=== PATIENT | female | born 1990 | race Caucasian/White ===

== ENCOUNTER 2020-09-05 20:34 | Observation (INO) | payer SELFPAY ==
[2020-09-05] MEDS ORDERED: Lactated Ringers 1,000 ML IV ONE (21:00)
[2020-09-05] MEDS ORDERED: Nalbuphine 10 MG/ML Syringe IVPUSH PRN (21:05)
[2020-09-05] MEDS ORDERED: Ampicillin 2 GM in Sodium Chloride 0.9% 100 ML IV ONE (21:30)
[2020-09-05] MEDS: traMADol 50 MG Tab PO PRN (21:39)
[2020-09-05] MEDS: Dextrose 5%-Lactated Ringers 1,000 ML IV SCH (22:05)
[2020-09-05] MEDS: Gentamicin 400 MG in Sodium Chloride 0.9% 100 ML IV SCH (22:06)
[2020-09-05] MEDS: Ondansetron 4 MG/2 ML SDV IVPUSH PRN (22:16)
--- NOTE | 2020-09-05 22:32 | PCM.LDHP ---
L&D History of Present Illness - General Date of Service: 09/05/20 Admit Problem/Dx: Patient Status Order with Admit Dx/Problem 09/05/20 20:43 Patient Status [ADT] Routine Admission Diagnosis/Problem Admission Diagnosis/Problem 09/05/20 22:22 Right pyelonephritis Source of Information: Patient History Limitations: Reports: No Limitations - History of Present Illness Introduction:: Azra is a 29-year-old 4 para 3-0-0-3 female who is admitted to observation status for suspected right pyelonephritis. Patient has a 3-day history of right-sided abdominal pain which is now extended to the right flank and right CVA. She was evaluated on 09/02/2020 in outpatient L&D for this right lower quadrant pain it was felt to be musculoskeletal at that time. At that time she reports urine analysis was normal. She is treated with pain medications, evaluated and found to have heart rate that was somewhat dysrhythmic with periods of what appeared to be bradycardia. She was however discharged home. Patient was seen in clinic 09/04/2020 with continued right lower quadrant pain, history of fever up to 100.8 on 09/03/2020. She however denied any urinary tract infection symptoms. Evaluation consisted of a white blood count which was mildly elevated at 11+ thousand. And a C-reactive protein which is elevated at 34. Late on 09/04/2020 urinalysis returned showing evidence of urinary tract infection. She was started on Macrobid 1 p.o. twice daily. White count decreased to 8 on the a.m. of 09/05/2020. Patient however has had somewhat worsening of her condition that she has had some nausea. Pain is 8/10 upon initial evaluation in the outpatient L&D this evening. Reports good movement. She has had some contractions. 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 CHELSI is 10/13/2020 as based upon a certain last menstrual period started 01/07/2020 and supported by an ultr asound done at 20-1/7 weeks. The patient has 3 other children. Their ages 13, 12 and 5 years of age. They are male, female and female respectively. All were born via and were in the 7 pound rate weight range. Menarche at age 9. Cycles q. 28 to 30 days. Not using any control at the time of conception. LMP was certain at 01/07/2020. hCG was positive on 02/27/2020. course: Patient was seen early in the at approximately 12-3/7 weeks gestational age. She has been seen on a regular basis. Her weight has been from 167.4 up to 174 pounds for a 7 pound increase. Patient declined Pap smear, STD testing and pelvic exam early in the . She declined a Tdap and flu vaccination. She declined genetic testing. Her EPDS score on 05/29/2020 was 3/30. She failed her 1 hour GTT with us glucose of 154 but she passed her 3-hour glucose with the following values 84 at fasting, 143 at 1 hour, 135 a 2- hour, 119 at 3-hour. Patient plans to breast-feed. She has had a low hemoglobin throughout the latter part of the . Allergies: Codeine derivatives which cause swelling. (Patient did recently use morphine sulfate IV on her last evaluation and treatment in the outpatient labor delivery on 09/02/2020had no problems with this). Medications: 1. Famotidine 20 mg orally daily as needed 2. vitamins daily 3. Ferrous sulfate 3 and 25 mg 1 tablet twice daily Past medical history: 1. Recurrent bladder infections 2. History of depression 3. Vaginal delivery x3 Past surgical history: Unremarkable Family history: Mother and father are alive and well. No related problems noted in the family. Social history: Patient is . She is a [id number] mom. She is a high school graduate. 's name is Aditi Bailey. She has a history of smoking 1/2 pack cigarettes per day pre but not during . She denies any significant also alcohol or drugs otherwise. Review of systems: Dental patient's main complaint is right lower quadrant pain generalized abdominal pain and right flank pain. She denies any fever. She has had some contractions this evening. No leakage of fluid, no bleeding vaginally. Skin: Negative Lungs: No infectious symptoms or shortness of breath Cardiovascular: No chest pain or exercise intolerance Breasts: Negative GI: Negative : Patient's had burning with urination and increased frequency urination. She feels like she is not completely emptying her bladder. Musculoskeletal: Negative Neurological: Negative Physical exam: In general the patient is well-developed, well-nourished, pleasant female of stated age in moderate distress secondary to abdominal pain as described above.. Skin is warm dry without lesions. HEENT, neck and back within normal limits. Lungs are clear with good breath sounds in all lung corado. Cardiovascular exam shows regular and rhythm without murmurs. Abdomen is gravid with fundal height on 09/04/2020 at 34.5 cm. Baby in vertex presentation. Genital per bimanual shows normal external genitalia, BUS, pubic hair pattern. There is normal support, secretions and estrogenization vagina. Cervix is open 1 to 2 cm at the external loss but closed at the internal loss and is soft. Presenting part is -3 or above. Feels like presenting part is cephalic. No bleeding noted. No loss of vaginal fluid noted. Extremities and neurological exam are grossly within normal limits. 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: Reports: Social & Family History - Family History Neurological: Reports: CVA Oncologic: Reports: None H&P Review of Systems - Review of Systems: Review Of Systems: See Below L&D Exam - Exam Exam: See Below - Vital Signs Weight: 78.834 kg - Patient Data Lab Results Last 24 hrs: Laboratory Results - last 24 hr 09/05/20 09/05/20 Range/Units 21:26 21:26 WBC 8.02 (3.98-10.04) K/mm3 RBC 3.45 L (3.98-5.22) M/mm3 Hgb 10.0 L (11.2-15.7) gm/dl Hct 31.7 L (34.1-44.9) % MCV 91.9 (79.4-94.8) fl MCH 29.0 (25.6-32.2) pg MCHC 31.5 L (32.2-35.5) g/dl RDW Std Deviation 48.2 H (36.4-46.3) fL Plt Count 166 L (182-369) K/mm3 MPV 11.3 (9.4-12.3) fl Neut % (Auto) 82.3 H (34.0-71.1) % Lymph % (Auto) 9.4 L (19.3-51.7) % Calhoun % (Auto) 7.0 (4.7-12.5) % Eos % (Auto) 0.6 L (0.7-5.8) Baso % (Auto) 0.1 (0.1-1.2) % Neut # (Auto) 6.60 H (1.56-6.13) K/mm3 Lymph # (Auto) 0.75 L (1.18-3.74) K/mm3 Calhoun # (Auto) 0.56 H (0.24-0.36) K/mm3 Eos # (Auto) 0.05 (0.04-0.36) K/mm3 Baso # (Auto) 0.01 (0.01-0.08) K/mm3 Sodium 137 (136-145) mEq/L Potassium 3.5 (3.5-5.1) mEq/L Chloride 101 (98-107) mEq/L Carbon Dioxide 19 L (21-32) mEq/L Anion Gap 20.5 H (5-15) BUN 3 L (7-18) mg/dL Creatinine 0.5 L (0.55-1.02) mg/dL Est Cr Clr Drug Dosing 161.44 mL/min Estimated GFR (MDRD) > 60 (>60) mL/min BUN/Creatinine Ratio 6.0 L (14-18) Glucose 84 (74-106) mg/dL Calcium 8.5 (8.5-10.1) mg/dL Total Bilirubin 0.5 (0.2-1.0) mg/dL AST 9 L (15-37) U/L ALT 12 L (14-59) U/L Alkaline Phosphatase 110 (46-116) U/L Total Protein 6.3 L (6.4-8.2) g/dl Albumin 2.3 L (3.4-5.0) g/dl Globulin 4.0 gm/dL Albumin/Globulin Ratio 0.6 L (1-2) Result Diagrams: 11/10/20 21:26 09/05/20 21:26 Problem List Initiated/Reviewed/Updated: Yes Orders Last 24hrs: Active Orders 24 hr Category Date Time Status Patient Status [ADT] Routine ADT 09/05/20 20:43 Active Non Stress Test [RC] PER UNIT ROUTINE Care 09/05/20 20:43 Active Vital Signs [RC] PER UNIT ROUTINE Care 09/05/20 20:43 Active CBC WITH AUTO DIFF [HEME] Stat Lab 09/05/20 21:26 Results CORONAVIRUS COVID-19 ELROY [MOLEC] Stat Lab 09/05/20 22:13 Ordered CULTURE BLOOD [BC] Stat Lab 09/05/20 21:16 Received CULTURE BLOOD [BC] Stat Lab 09/05/20 21:26 Received Ampicillin 2 gm Med 09/05/20 22:30 Ordered Sodium Chloride 0.9% [Normal Saline] 100 ml IV Q6H Dextrose 5%-Lactated Ringers 1,000 ml Med 09/05/20 22:00 Active IV ASDIRECTED Gentamicin 400 mg Med 09/05/20 22:00 Active Sodium Chloride 0.9% [Normal Saline] 100 ml IV Q24H Morphine Med 09/05/20 22:16 Ordered 2 mg IVPUSH Q2H PRN Ondansetron [Zofran] Med 09/05/20 21:04 Active 4 mg IVPUSH Q4HR PRN Pharmacy to Dose - Gentamicin Med 09/05/20 21:15 Pending 1 dose .XX ASDIRECTED traMADol [Ultram] Med 09/05/20 21:21 Active 50 mg PO Q4H PRN Blood Culture x2 Reflex Set [OM.PC] Stat Oth 09/05/20 20:58 Ordered Resuscitation Status Routine Resus Stat 09/05/20 20:43 Ordered Medication Orders Gentamicin Sulfate (Pharmacy To Dose - Gentamicin) 1 dose .XX ASDIRECTED JANNETH Dextrose/Lactated Ringer's (Dextrose 5%-Lactated Ringers) 1,000 mls @ 150 mls/hr IV ASDIRECTED JANNETH Last Admin: 09/05/20 22:05 Dose: 150 mls/hr Documented by: RONALD Gentamicin Sulfate 400 mg/ (Sodium Chloride) 110 mls @ 110 mls/hr IV Q24H JANNETH Last Admin: 09/05/20 22:06 Dose: 110 mls/hr Documented by: RONALD Ampicillin Sodium 2 gm/ Sodium (Chloride) 100 mls @ 200 mls/hr IV Q6H JANNETH Morphine Sulfate (Morphine) 2 mg IVPUSH Q2H PRN PRN Reason: Pain (severe 7-10) Ondansetron HCl (Zofran) 4 mg IVPUSH Q4HR PRN PRN Reason: Nausea Last Admin: 09/05/20 22:16 Dose: 4 mg Documented by: RONALD Tramadol HCl (Ultram) 50 mg PO Q4H PRN PRN Reason: Pain Last Admin: 09/05/20 21:39 Dose: 50 mg Documented by: RONALD Assessment/Plan Comment:: 1. 34-4/7-week intrauterine 2. Right-sided abdominal pain, flank pain, CVA tenderness along with urinalysis last night which is indicative of UTI with clinical scenario most probably consistent with right pyelonephritis. 3. Biophysical profile yesterday was 08/05 with reactive NST while evaluating labor delivery-electronic monitor at this time shows reassuring strip. Patient however did have a heart rate evaluation on 09/02/2020 when seen in outpatient L&D that showed areas of dysrhythmia including what appeared to be a significantly lowered heart rate in the 60s at times. Not consistent with typical heart rate decelerations. 4. MRI done yesterday in evaluation of pain shows right Lafe-ureteronephrosis. Also some debris within the kidneys noted. 5. Urine culture set up and pendingpreliminary results not available at this time 6. Patient has declined Tdap, flu vaccination, genetic testing at this time. Plan: 1. Initiate ampicillin 2 g IV every 6 hours and gentamicin at a dosage recommended by pharmacy (usually 5 mg/kg per 24 hours) 2. Intermittent monitoring to reassure us of wellbeing 3. IV fluid hydration with LR initially and then D5LR thereafter as ordered 4. Analgesia consist of morphine 2 g IV every 2 hours as needed for severe pain. Tramadol 50 mg p.o. every 4-6 hours as needed for lesser pain 5. Zofran 4 mg IV push every 4 hours as needed for nausea 6. Await urine culture results and modify therapy as indicated 8. Regular activity as tolerated 9. Monitor I and O 10. Patient has appoint with maternal- medicine Dr. Restrepo 2 days to evaluate cardiac dysrhythmia that was previously noted on last evaluation in outpatient L&D.
[2020-09-05] MEDS: Morphine 2 MG/ML SYRINGE IVPUSH PRN (22:36)
[2020-09-05] MEDS: Docusate Sodium 100 MG Cap PO PRN (23:19)
[2020-09-06] MEDS: Morphine 2 MG/ML SYRINGE IVPUSH PRN ×7 (00:17→22:39)
[2020-09-06] MEDS ORDERED: Ampicillin 1 GM in Sodium Chloride 0.9% 100 ML IV SCH (01:30)
[2020-09-06] MEDS: traMADol 50 MG Tab PO PRN ×4 (02:38→20:31)
[2020-09-06] MEDS: Ampicillin 2 GM in Sodium Chloride 0.9% 100 ML IV SCH ×4 (03:59→21:43)
[2020-09-06] MEDS: Dextrose 5%-Lactated Ringers 1,000 ML IV SCH ×3 (05:25→18:48)
[2020-09-06] MEDS: Docusate Sodium 100 MG Cap PO PRN (08:21)
--- NOTE | 2020-09-06 12:40 | US ---
PROCEDURE INFORMATION: Exam: US Retroperitoneal; Complete; Kidneys and Bladder Exam date and time: 09/06/2020 8:51 AM Age: 29 years old Clinical indication: Pain; Other: Flank; TECHNIQUE: Imaging protocol: Real-time ultrasound of the retroperitoneum with image documentation. Complete exam focused on the kidneys and bladder. COMPARISON: OT BPP wo NST 09/04/2020 12:06 PM FINDINGS: Right kidney: Right kidney measures 14 x 6 x 6.3 cm. Moderate right hydronephrosis. Dilated proximal and mid right ureter measuring approximately 2 cm in diameter. The lower right ureter was to visualize in the pelvis. Normal resistive indices of the segmental right renal arteries. Left kidney: Left kidney measures approximately 12 x 5 x 4 cm. The left renal collecting system is mildly prominent. Rounded 4 mm hyperechoic focus in the lower pole of the right kidney. It is difficult to tell if this is in the renal parenchyma or in the renal pelvis. It could be a calcification or a renal angiomyolipoma. Normal resistive indices in the segmental arteries of the left kidney. Urinary bladder: Prevoid urinary volume 73 mL. Postvoid volume 5 mL. Bladder wall thickness approximately 5 mm. IMPRESSION: 1. Moderate right hydronephrosis and ureterectasis in late 3rd trimester . Lower right ureter not visualized. Findings may be physiologic due to gravid uterus but a distal stone cannot be excluded base on submitted images. Recommend correlation with clinical scenario. 2. Possible calcified nonobstructing stone versus parenchymal AML in the lower left kidney. Thank you for allowing us to participate in the care of your patient. Dictated and Authenticated by: Blaire Velazquez MD 09/06/2020 1:19 PM Central Time ([place] & [place]) ADAM
[2020-09-06] MEDS: Ondansetron 4 MG/2 ML SDV IVPUSH PRN ×2 (16:12→22:13)
[2020-09-06] MEDS: Magnesium Hydroxide 400 MG/5 ML Susp 30 ML Cup PO SCH ×3 (16:20→21:13)
[2020-09-06] MEDS ORDERED: hydrOXYzine HCl 50 MG Tab PO ONE (21:40)
[2020-09-06] MEDS: Gentamicin 400 MG in Sodium Chloride 0.9% 100 ML IV SCH (22:15)
[2020-09-07] MEDS: Morphine 2 MG/ML SYRINGE IVPUSH PRN ×3 (00:30→05:35)
[2020-09-07] MEDS: Magnesium Hydroxide 400 MG/5 ML Susp 30 ML Cup PO SCH ×3 (00:33→07:22)
[2020-09-07] MEDS: traMADol 50 MG Tab PO PRN ×2 (02:21→07:16)
[2020-09-07] MEDS: Dextrose 5%-Lactated Ringers 1,000 ML IV SCH (02:27)
[2020-09-07] MEDS: Ampicillin 2 GM in Sodium Chloride 0.9% 100 ML IV SCH ×2 (03:35→08:15)
--- NOTE | 2020-09-07 08:46 | PCM.DCSUM1 ---
Discharge Summary - Hospital Course Free Text/Narrative:: Azra is a 29-year-old 4 para 3-0-0-3 female who was admitted on 09/05 to observation status for suspected right pyelonephritis. Patient has a 3-day history of right-sided abdominal pain which is now extended to the right flank and right CVA. She was evaluated on 09/02/2020 in outpatient L&D for this right lower quadrant pain it was felt to be musculoskeletal at that time. At that time she reports urine analysis was normal. She is treated with pain medications, evaluated and found to have heart rate that was somewhat dysrhythmic with periods of what appeared to be bradycardia. She was however discharged home. Patient was seen in clinic 09/04/2020 with continued right lower quadrant pain, history of fever up to 100.8 on 09/03/2020. She however denied any urinary tract infection symptoms. Evaluation consisted of a white b lood count which was mildly elevated at 11+ thousand. And a C-reactive protein which is elevated at 34. Late on 09/04/2020 urinalysis returned showing evidence of urinary tract infection. She was started on Macrobid 1 p.o. twice daily. White count decreased to 8 on the a.m. of 09/05/2020. Patient however has had somewhat worsening of her condition that she has had some nausea. Pain is 8/10 upon initial evaluation in the outpatient L&D.. Reports good movement. She has had some contractions. Patient is started on IV ampicillin and gentamicin for suspected right pyonephritis. During the course of her hospitalization she did not have any temperature elevation. Her white blood count remained high normal. It had decreased from 11+ just prior to admission. Her pain however continued and the suspicion was that constipation was a component of this pain patient had not had a bowel movement for 6 days. She was treated with IV morphine initially and with tramadol. She was given Vistaril 50 mg p.o. to help with rest on the last night of her hospitalization. Her vital signs remained stable. She remained afebrile. Electronic monitoring showed generally reassuring rhythm strips however on occasion heart rate would decrease to 60 bpm. This was a pattern that was seen approximately 6 days ago on her outpatient evaluation per Dr. Nettles. She is scheduled on 09/07/2020 to see [facility] for this finding. Patient has been treated with Colace, milk of magnesia and most recently with 2 fleets enemas. She has had moderate results with that and has felt an improveme nt in her discomfort. She is discharged on the a.m. of 09/07/2020 that she can make her appointment with KARY Oliveira, [facility] in [place], [place] which is at 1100 hrs. about 1 time in [place]. Discharge condition: Good Diagnosis: Stroke: No - Discharge Data Discharge Date: 09/07/20 Discharge Disposition: Home, Self-Care 01 Condition: Good - Referral to Home Health Primary Care Physician: Yosvany Ohara MD - Patient Instructions Diet: Regular Diet as Tolerated (High-fiber diet and adequate fluid intake.) Activity: As Tolerated Driving: Do Not Drive Showering/Bathing: May Shower Showering/Bathing, Other: May take a bath - Discharge Plan Prescriptions/Med Rec: Amoxicillin/Clavulanate K [Augmentin 875-125 MG] 1 tab PO BID #14 tablet Home Medications: Home Meds Pnv No.95/Ferrous Fum/Folic AC [ Tablet] 1 each PO DAILY 06/11/20 [History] Famotidine 20 mg PO DAILY 09/04/20 [History] Ferrous Sulfate [Iron] 325 mg PO BID 09/04/20 [History] Amoxicillin/Clavulanate K [Augmentin 875-125 MG] 1 tab PO BID #14 tablet 09/07/20 [Rx] Docusate Sodium [Colace] 100 mg PO BID PRN cap 09/07/20 [Rx] Magnesium Hydroxide [Milk of Magnesia] 30 ml PO Q3H cup 09/07/20 [Rx] traMADol [Ultram] 50 mg PO Q4H PRN tablet 09/07/20 [Rx] Referrals: Yosvany Ohara MD [Primary Care Provider] - ([facility] - Discharge Summary/Plan Comment DC Time >30 min.: No Discharge Summary/Plan Comment: Discharge instructions: 1. Discharge home 2. Diet, activity and follow-up discussed with patient. Recommend high-fiber diet with increased calories and calcium. 3. Precautions given concern increased pain, bleeding, temperature, signs/symptoms of DVT/PE. 4. Medications per home medication was printed, discussed with and given to the patient. 5. Return to clinic-Dr. Ohara-[facility] in 1 week. Diagnosis: 1. Right pyelonephritis 2. Constipation 3. 34+ week intrauterine Condition: Good - Patient Data Vitals - Most Recent: Last Vital Signs Temp 36.7 C 09/07/20 03:32 Pulse 108 H 09/07/20 03:32 Resp 14 09/07/20 03:32 BP 118/78 09/07/20 03:32 Pulse Ox 93 L 09/07/20 03:32 Weight - Most Recent: 78.834 kg I&O - Last 24 hours: Intake & Output 09/06/20 09/07/20 09/07/20 22:59 06:59 14:59 Intake Total 1340 45 Output Total 1100 980 Balance 240 -935 Lab Results - Last 24 hrs: Laboratory Results - last 24 hr 09/06/20 Range/Units 09:58 Random Gentamicin 0.4 L (5.0-10.0) ug/mL JAMIE Results - Last 24 hrs: Microbiology 09/05/20 21:16 Aerobic Blood Culture - Preliminary Blood - Venous NO GROWTH AFTER 1 DAY Anaerobic Blood Culture - Final 09/05/20 21:26 Aerobic Blood Culture - Preliminary Blood - Venous - Lab Draw NO GROWTH AFTER 1 DAY Anaerobic Blood Culture - Preliminary NO GROWTH AFTER 1 DAY Med Orders - Current: Current Medications Docusate Sodium (Colace) 100 mg PO BID PRN PRN Reason: Constipation Last Admin: 09/06/20 08:21 Dose: 100 mg Documented by: Gentamicin Sulfate (Pharmacy To Dose - Gentamicin) 1 dose .XX ASDIRECTED PRN PRN Reason: RX TO DOSE GENT Dextrose/Lactated Ringer's (Dextrose 5%-Lactated Ringers) 1,000 mls @ 150 mls/hr IV ASDIRECTED JANNETH Last Admin: 09/07/20 02:27 Dose: 150 mls/hr Documented by: Gentamicin Sulfate 400 mg/ (Sodium Chloride) 110 mls @ 110 mls/hr IV Q24H [facility] Last Admin: 09/06/20 22:15 Dose: 110 mls/hr Documented by: Ampicillin Sodium 2 gm/ Sodium (Chloride) 100 mls @ 200 mls/hr IV Q6H [facility] Last Admin: 09/07/20 08:15 Dose: 200 mls/hr Documented by: Magnesium Hydroxide (Milk Of Magnesia) 30 ml PO Q3H JANNETH Last Admin: 09/07/20 07:22 Dose: Not Given Documented by: Morphine Sulfate (Morphine) 2 mg IVPUSH Q2H PRN PRN Reason: Pain (severe 7-10) Last Admin: 09/07/20 05:35 Dose: 2 mg Documented by: Ondansetron HCl (Zofran) 4 mg IVPUSH Q4HR PRN PRN Reason: Nausea Last Admin: 09/06/20 22:13 Dose: 4 mg Documented by: Tramadol HCl (Ultram) 50 mg PO Q4H PRN PRN Reason: Pain Last Admin: 09/07/20 07:16 Dose: 50 mg Documented by: Discontinued Medications Hydroxyzine HCl (Atarax) 50 mg PO ONETIME ONE Stop: 09/06/20 21:41 Last Admin: 09/06/20 23:02 Dose: 50 mg Documented by: Ampicillin Sodium 2 gm/ Sodium (Chloride) 100 mls @ 200 mls/hr IV ONETIME ONE Stop: 09/05/20 21:59 Last Admin: 09/05/20 21:27 Dose: 200 mls/hr Documented by: Lactated Ringer's (Ringers, Lactated) 1,000 mls @ 999 mls/hr IV .BOLUS ONE Stop: 09/05/20 22:00 Last Admin: 09/05/20 21:15 Dose: 999 mls/hr Documented by: Ampicillin Sodium 1 gm/ Sodium (Chloride) 100 mls @ 200 mls/hr IV Q4H JANNETH Nalbuphine HCl (Nubain) 10 mg IVPUSH Q2HR PRN PRN Reason: Pain
[2020-09-07] MEDS ORDERED: hydrOXYzine HCl 50 MG Tab PO SCH (21:00)
== END 2020-09-07 08:50 | disposition home or self-care (01) ==
LOC: JD.OBCHECK 20:34 → JD.OB 20:37 → JD.OBCHECK 23:10 → JD.OB 23:10
PROVIDERS: ADMIT Obstetrics & Gynecology; ATTEND Obstetrics & Gynecology
DX: O23.03 Infections of kidney in pregnancy, third trimester (principal); O23.43 Unspecified infection of urinary tract in pregnancy, third trimester; N13.6 Pyonephrosis; Z3A.34 34 weeks gestation of pregnancy; Z01.812 Encounter for preprocedural laboratory examination; Z20.828 Contact with and (suspected) exposure to other viral communicable diseases; Z79.899 Other long term (current) drug therapy
CPT/HCPCS: 36415; 51798; 59025; 76770; 80053; 80170; 85025; 87040; 87086; 87635; 96360; 96361; 96365; 96374; 96375; 96376; A9270; J0290; J1580; J2270; J2405; J7050; J7120; J7121; 96367; G0378; U0002

== ENCOUNTER 2022-01-20 08:22 | Day surgery (SDC) | payer MEDICAID, OTHER, SELFPAY ==
[2022-01-20] MEDS ORDERED: Sodium Chloride 0.9% 10 ML Syringe FLUSH PRN (09:01)
[2022-01-20] MEDS ORDERED: Ondansetron 4 MG/2 ML SDV IVPUSH ONE (09:01)
[2022-01-20] MEDS ORDERED: HYDROmorphone 1 MG/ML Syringe IVPUSH ONE (09:03)
[2022-01-20] MEDS ORDERED: Ketorolac 30 MG/ML SDV IVPUSH ONE (09:03)
[2022-01-20] MEDS ORDERED: Sodium Chloride 0.9% 1,000 ML IV SCH (09:15)
[2022-01-20] MEDS ORDERED: Piperacillin/Tazobactam 4.5 GM in Sodium Chloride 0.9% 100 ML IV ONE (11:13)
[2022-01-20] MEDS ORDERED: Lactated Ringers 1,000 ML IV STA (11:38)
[2022-01-20] MEDS ORDERED: Lidocaine 1% with EPINEPHrine 1:100,000 10 ML MDV ONE (11:43)
[2022-01-20] MEDS ORDERED: Bupivacaine 0.5%/EPINEPHrine 1:200,000 50 ML MDV ONE (11:43)
[2022-01-20] MEDS ORDERED: Midazolam 1 MG/ML 2 ML SDV ONE (11:55)
[2022-01-20] MEDS ORDERED: Rocuronium 50 MG/5 ML Vial ONE (11:55)
[2022-01-20] MEDS ORDERED: Lidocaine 1% 4 ML ONE (11:55)
[2022-01-20] MEDS ORDERED: fentaNYL 250 MCG/5 ML SDV ONE (11:55)
[2022-01-20] MEDS ORDERED: Propofol 200 MG/20 ML SDV ONE (11:55)
[2022-01-20] MEDS ORDERED: Ondansetron 4 MG/2 ML SDV ONE (11:55)
[2022-01-20] MEDS ORDERED: Dexamethasone 4 MG/ML 5 ML MDV ONE (11:56)
[2022-01-20] MEDS ORDERED: Ondansetron 4 MG/2 ML SDV IVPUSH PRN (12:24)
[2022-01-20] MEDS ORDERED: HYDROmorphone 0.5 MG/0.5 ML Syringe IVPUSH PRN (12:24)
[2022-01-20] MEDS ORDERED: fentaNYL 100 MCG/2 ML SDV IVPUSH PRN (12:24)
[2022-01-20] MEDS ORDERED: Ketorolac 30 MG/ML SDV ONE (12:55)
[2022-01-20] MEDS ORDERED: Lactated Ringers 1,000 ML ONE (12:58)
[2022-01-20] MEDS ORDERED: traMADol 50 MG Tab PO ONE (14:25)
== END 2022-01-20 15:55 | disposition home or self-care (01) ==
LOC: JD.ED 08:22 → JD.SDS 11:11
PROVIDERS: ATTEND Surgery
DX: K35.30 Acute appendicitis with localized peritonitis, without perforation or gangrene (principal); Z88.5 Allergy status to narcotic agent; Z87.891 Personal history of nicotine dependence
CPT/HCPCS: 36415; 44970; 71045; 74176; 80053; 81001; 83690; 84703; 85025; 96365; 96375; 99284; A9270; J1100; J1170; J1885; J2250; J2405; J2543; J2704; J2710; J3010; J3490; J7030; J7120; 00840